=== PATIENT | male | born 1990 | race Two or more races ===

== ENCOUNTER 2020-02-19 10:00 | Emergency (ER) | payer SELFPAY ==
[2020-02-19] MEDS ORDERED: Sodium Chloride 0.9% 1,000 ML IV ONE ×2 (10:21→11:24)
[2020-02-19] MEDS ORDERED: Alum Hydrox/Mag Hydrox/Simeth 15 ML, Metoclopramide 5 MG, Lidocaine 2% 5 ML PO ONE ×3 (10:21)
[2020-02-19] MEDS ORDERED: Ondansetron 4 MG/2 ML SDV IVPUSH ONE (10:29)
[2020-02-19] MEDS ORDERED: Famotidine 20 MG/2 ML SDV IVPUSH ONE (10:29)
--- NOTE | 2020-02-19 10:38 | EDM.PDOC ---
ED HPI GENERAL MEDICAL PROBLEM - General Chief Complaint: Abdominal Pain Stated Complaint: STOMACH ISSUES Time Seen by Provider: 02/19/20 10:11 Source of Information: Reports: Patient History Limitations: Reports: No Limitations - History of Present Illness INITIAL COMMENTS - FREE TEXT/NARRATIVE: HISTORY AND PHYSICAL: History of present illness: Patient is a 29-year-old male who presents to the emergency room with complaints of epigastric abdominal pain that started around 3 AM this morning. States he did have an episode of vomiting, none within the last several hours although still has some nausea. Patient denies any fever, chills, headache, change in vision, syncope or near syncope. Denies any chest pain, back pain, shortness of breath or cough. Denies any diarrhea, constipation or dysuria. Has not noted any blood in urine or stool. Patient has been eating and drinking appropriately. No recent travel. No exposure or family members who are sick. Patient has no significant health problems and no surgeries. Does not take any medications. Denies any drug or alcohol abuse. Review of systems: As per history of present illness and below otherwise all systems reviewed and negative. Past medical history: As per history of present illness and as reviewed below otherwise noncontributory. Surgical history: As per history of present illness and as reviewed below otherwise noncontributory. Social history: See social history for further information Family history: As per history of present illness and as reviewed below otherwise noncontributory. Physical exam: General: Well developed and well nourished. Alert and orientated x 3. Nontoxic in appearance and in no acute distress. Vital signs are stable and have been reviewed by me. Nursing notes were reviewed. Translation services was used, Sammarinese-speaking. HEENT: Atraumatic, normocephalic, pupils equal and reactive bilaterally, negative for conjunctival pallor or scleral icterus, mucous membranes moist, TMs normal bilaterally, throat clear, neck supple, nontender, trachea midline. No drooling or trismus noted. No meningeal signs. No hot potato voice noted. Lungs: Clear to auscultation, breath sounds equal bilaterally, chest nontender. Normal work of breathing, no accessory muscles used. Heart: S1S2, regular rate and rhythm without overt murmur Abdomen: Soft, nondistended, epigastric tenderness without rebound tenderness. Negative for masses or hepatosplenomegaly. Negative for costovertebral tenderness. Skin: Intact, warm, dry. No lesions or rashes noted. Hematologic: No petechiae or purpra. Mucosa appropriate color and normal nail bed color and refill. Extremities: Atraumatic, moves all extremities per self without difficulty or deficits, negative for cords or calf pain. Neurovascular unremarkable. Neuro: Awake, alert, oriented. Cranial nerves II through XII unremarkable. Cerebellum unremarkable. Motor and sensory unremarkable throughout. Exam nonfocal. Notes: Patient's white count is 20.68, lactate of 2.8. Patient's lab work is otherwise unremarkable. His CT of the abdomen and pelvis shows no acute findings. As his white count and lactate are elevated I would like to keep him for observation for the leukocytosis so he can receive fluids and monitor patient status. I did con Dr. Mina, hospitalist on-call, who is agreeable to keeping this patient for further care. Patient's vital signs remained stable. Patient decided to leave AGAINST MEDICAL ADVICE. He is aware of the risks of leaving without further observation and management. We discussed signs and symptoms that would prompt him to return to the emergency room. All signs remained stable. He states he feels much improved after the fluids and medications. He denies any further questions or concerns at this time. This was done with witness. Diagnostics: CBC, CMP, UA, Lipase Therapeutics: Normal Saline, Pepcid, Zofran, Morphine Impression: Leukocytosis Abdominal Pain AMA Plan: Observation admission to Med/Surg -[facility] decided to leave AGAINST MEDICAL ADVICE. Definitive disposition and diagnosis as appropriate pending reevaluation and review of above. abd Pain Score (Numeric/FACES): 7 - Related Data Allergies Allergy/AdvReac Type Severity Reaction Status Date / Time No Known Allergies Allergy Verified 02/19/20 10:25 Home Meds: Home Meds Ondansetron [Zofran ODT] 4 mg PO Q6H PRN #8 tab.dis 02/19/20 [Rx] ED ROS GENERAL - Review of Systems Review Of Systems: Comprehensive ROS is negative, except as noted in HPI. ED EXAM, GI/ABD - Physical Exam Exam: See Below (See dictation) Course - Vital Signs Last Recorded V/S: Last Vital Signs Temp 95.2 F L 02/19/20 10:22 Pulse 96 02/19/20 12:09 Resp 18 02/19/20 12:09 BP 145/77 H 02/19/20 12:09 Pulse Ox 98 02/19/20 12:09 - Orders/Labs/Meds Orders: Active Orders 24 hr Category Date Time Status Admission Status [Patient Status] [ADT] Stat ADT 02/19/20 13:13 Ordered CULTURE BLOOD [BC] Stat Lab 02/19/20 10:54 Received CULTURE BLOOD [BC] Stat Lab 02/19/20 10:58 Received Blood Culture x2 Reflex Set [OM.PC] Stat Oth 02/19/20 10:45 Ordered Labs: Laboratory Tests 02/19/20 02/19/20 02/19/20 Range/Units 10:25 10:25 10:50 WBC 20.63 H (4.0-11.0) K/uL RBC 5.57 (4.50-5.90) M/uL Hgb 18.0 H (13.0-17.0) g/dL Hct 51.2 H (38.0-50.0) % MCV 91.9 (80.0-98.0) fL MCH 32.3 H (27.0-32.0) pg MCHC 35.2 (31.0-37.0) g/dL RDW Std Deviation 45.2 (28.0-62.0) fl RDW Coeff of Ayaka 13 (11.0-15.0) % Plt Count 245 (150-400) K/uL MPV 11.70 (7.40-12.00) fL Neut % (Auto) 81.3 H (48.0-80.0) % Lymph % (Auto) 11.6 L (16.0-40.0) % [place] % (Auto) 6.9 (0.0-15.0) % Eos % (Auto) 0.0 (0.0-7.0) % Baso % (Auto) 0.2 (0.0-1.5) % Neut # (Auto) 16.8 H (1.4-5.7) K/uL Lymph # (Auto) 2.4 (0.6-2.4) K/uL Titus # (Auto) 1.4 H (0.0-0.8) K/uL Eos # (Auto) 0.0 (0.0-0.7) K/uL Baso # (Auto) 0.0 (0.0-0.1) K/uL Nucleated RBC % 0.0 /100WBC Nucleated RBCs # 0 K/uL Lactate (0.20-2.00) mmol/L Sodium 138 (136-148) mmol/L Potassium 4.0 (3.5-5.1) mmol/L Chloride 99 (98-107) mmol/L Carbon Dioxide 27.9 (21.0-32.0) mmol/L BUN 19 H (7.0-18.0) mg/dL Creatinine 1.3 (0.8-1.3) mg/dL Est Cr Clr Drug Dosing 85.79 mL/min Estimated GFR (MDRD) > 60.0 ml/min Glucose 141 H (74-106) mg/dL Calcium 10.1 (8.5-10.1) mg/dL Total Bilirubin 1.1 H (0.2-1.0) mg/dL AST 30 (15-37) IU/L ALT 62 (14-63) IU/L Alkaline Phosphatase 79 (46-116) U/L Total Protein 8.6 H (6.4-8.2) g/dL Albumin 4.8 (3.4-5.0) g/dL Globulin 3.8 (2.6-4.0) g/dL Albumin/Globulin Ratio 1.3 (0.9-1.6) Lipase 178 (73-393) U/L Urine Color YELLOW Urine Appearance CLEAR Urine pH 6.5 (5.0-8.0) Ur Specific [place] 1.010 (1.001-1.035) Urine Protein NEGATIVE (NEGATIVE) mg/dL Urine Glucose (UA) NEGATIVE (NEGATIVE) mg/dL Urine Ketones NEGATIVE (NEGATIVE) mg/dL Urine Occult Blood NEGATIVE (NEGATIVE) Urine Nitrite NEGATIVE (NEGATIVE) Urine Bilirubin NEGATIVE (NEGATIVE) Urine Urobilinogen 0.2 (<2.0) EU/dL Ur Leukocyte Esterase NEGATIVE (NEGATIVE) COVID-19 (FELI) (NEGATIVE) 02/19/20 02/19/20 Range/Units 10:58 12:10 WBC (4.0-11.0) K/uL RBC (4.50-5.90) M/uL Hgb (13.0-17.0) g/dL Hct (38.0-50.0) % MCV (80.0-98.0) fL MCH (27.0-32.0) pg MCHC (31.0-37.0) g/dL RDW Std Deviation (28.0-62.0) fl RDW Coeff of Ayaka (11.0-15.0) % Plt Count (150-400) K/uL MPV (7.40-12.00) fL Neut % (Auto) (48.0-80.0) % Lymph % (Auto) (16.0-40.0) % [place] % (Auto) (0.0-15.0) % Eos % (Auto) (0.0-7.0) % Baso % (Auto) (0.0-1.5) % Neut # (Auto) (1.4-5.7) K/uL Lymph # (Auto) (0.6-2.4) K/uL [place]itus # (Auto) (0.0-0.8) K/uL Eos # (Auto) (0.0-0.7) K/uL Baso # (Auto) (0.0-0.1) K/uL Nucleated RBC % /100WBC Nucleated RBCs # K/uL Lactate 2.8 H* (0.20-2.00) mmol/L Sodium (136-148) mmol/L Potassium (3.5-5.1) mmol/L Chloride (98-107) mmol/L Carbon Dioxide (21.0-32.0) mmol/L BUN (7.0-18.0) mg/dL Creatinine (0.8-1.3) mg/dL Est Cr Clr Drug Dosing mL/min Estimated GFR (MDRD) ml/min Glucose (74-106) mg/dL Calcium (8.5-10.1) mg/dL Total Bilirubin (0.2-1.0) mg/dL AST (15-37) IU/L ALT (14-63) IU/L Alkaline Phosphatase (46-116) U/L Total Protein (6.4-8.2) g/dL Albumin (3.4-5.0) g/dL Globulin (2.6-4.0) g/dL Albumin/Globulin Ratio (0.9-1.6) Lipase (73-393) U/L Urine Color Urine Appearance Urine pH (5.0-8.0) Ur Specific [place] (1.001-1.035) Urine Protein (NEGATIVE) mg/dL Urine Glucose (UA) (NEGATIVE) mg/dL Urine Ketones (NEGATIVE) mg/dL Urine Occult Blood (NEGATIVE) Urine Nitrite (NEGATIVE) Urine Bilirubin (NEGATIVE) Urine Urobilinogen (<2.0) EU/dL Ur Leukocyte Esterase (NEGATIVE) COVID-19 (FELI) NEGATIVE (NEGATIVE) Meds: Medications Discontinued Medications Generic Name Dose Route Start Last Admin Trade Name Freq PRN Reason Stop Dose Admin Al Hydroxide/Mg Hydroxide 15 0 ml 02/19/20 10:21 02/19/20 10:53 ml/ Metoclopramide HCl 5 mg/ PO 02/19/20 10:22 Not Given Lidocaine HCl 5 ml ONETIME ONE Famotidine 20 mg 02/19/20 10:29 02/19/20 10:51 Pepcid IVPUSH 02/19/20 10:30 20 mg ONETIME ONE Administration Sodium Chloride 1,000 mls @ 999 mls/hr 02/19/20 10:21 02/19/20 10:51 Normal Saline IV 02/19/20 11:21 999 mls/hr STAT ONE Administration Sodium Chloride 1,000 mls @ 999 mls/hr 02/19/20 11:24 02/19/20 11:27 Normal Saline IV 02/19/20 12:24 999 mls/hr STAT ONE Administration Iopamidol 100 ml 02/19/20 11:50 02/19/20 11:51 Isovue-370 (76%) IVPUSH 02/19/20 11:51 100 ml ONETIME ONE Administration Morphine Sulfate 4 mg 02/19/20 11:03 02/19/20 11:21 Morphine IVPUSH 02/19/20 11:04 4 mg ONETIME ONE Administration Ondansetron HCl 4 mg 02/19/20 10:29 02/19/20 10:52 Zofran IVPUSH 02/19/20 10:30 4 mg ONETIME ONE Administration Departure - Departure Time of Disposition: 13:45 Disposition: Against Medical Advice 07 Clinical Impression: Left against medical advice Leukocytosis Qualifiers: Leukocytosis type: unspecified Qualified Code(s): D72.829 - Elevated white blood cell count, unspecified Abdominal pain Qualifiers: Abdominal location: epigastric Qualified Code(s): R10.13 - Epigastric pain - Discharge Information Prescriptions: Ondansetron [Zofran ODT] 4 mg PO Q6H PRN #8 tab.dis PRN Reason: Nausea Referrals: PCP,Not In Area [Primary Care Provider] - Forms: ED Department Discharge Sepsis Event Note (ED) - Evaluation Sepsis Screening Result: No Definite Risk - Focused Exam Vital Signs: Vital Signs Temp Pulse Resp BP Pulse Ox 02/19/20 12:09 96 18 145/77 H 98 02/19/20 11:24 99 18 137/79 97 02/19/20 10:22 95.2 F L 104 H 16 167/87 H 97 - My Orders Last 24 Hours: My Active Orders 02/19/20 10:45 Blood Culture x2 Reflex Set [OM.PC] Stat 02/19/20 10:54 CULTURE BLOOD [BC] Stat 02/19/20 10:58 CULTURE BLOOD [BC] Stat 02/19/20 13:13 Admission Status [Patient Status] [ADT] Stat - Assessment/Plan Last 24 Hours: My Active Orders 02/19/20 10:45 Blood Culture x2 Reflex Set [OM.PC] Stat 02/19/20 10:54 CULTURE BLOOD [BC] Stat 02/19/20 10:58 CULTURE BLOOD [BC] Stat 02/19/20 13:13 Admission Status [Patient Status] [ADT] Stat
[2020-02-19 11:00] LABS: BLOOD UREA NITROGEN,BUN 19 mg/dL (7.0-18.0); CARBON DIOXIDE,CO2 27.9 mmol/L (21.0-32.0); CHLORIDE,CL 99 mmol/L (98-107); GLUCOSE RANDOM 141 mg/dL (74-106); LIPASE 178 U/L (73-393); SODIUM,NA 138 mmol/L (136-148)
[2020-02-19] MEDS ORDERED: Morphine 4 MG/ML Syringe IVPUSH ONE (11:03)
[2020-02-19] MEDS ORDERED: Iopamidol 755 Mg/ML 100 ML Bottle IVPUSH ONE (11:50)
--- NOTE | 2020-02-19 13:00 | CT ---
Abdominal pain. Noncontrast CT abdomen pelvis no comparison studies are available. FINDINGS: Motion degrades the quality of the study. The heart size is normal. There is no pericardial effusion. Lung bases are clear. Fatty liver. Spleen pancreas gallbladder adrenal glands are unremarkable. Normal caliber abdominal aorta. Symmetric enhancement both kidneys. No hydronephrosis. Bowel appears unremarkable no obstruction appendix not seen no findings for appendicitis. Urinary bladder is unremarkable prostate gland unremarkable. No suspicious bony lesions. Impression: 1.No acute findings in the abdomen or pelvis. 2. Fatty liver. Please note that all CT scans at this facility use dose modulation, iterative reconstruction, and/or weight-based dosing when appropriate to reduce radiation dose to as low as reasonably achievable. Dictated by May Rios MD @ Feb 19 2020 12:53PM Signed by Dr. May Rios @ Feb 19 2020 12:58PM
--- NOTE | 2020-02-19 13:23 | CR ---
INDICATION: Dyspnea TECHNIQUE: Chest radiograph 1 view COMPARISON: None FINDINGS: Mediastinum: The mediastinum is normal in appearance. The heart silhouette is normal in size and morphology. Lung: Mild bibasilar subsegmental atelectasis is noted with small lung volumes. No sign of pleural effusion seen. No pneumothorax is identified. Bone and Soft tissue: Unremarkable for age. IMPRESSION: 1. Mild bibasilar subsegmental atelectasis is noted with small lung volumes. Dictated by: Jeb Landry MD @ 02/19/2020 13:22:22 (Electronically Signed)
== END 2020-02-19 14:03 | disposition left against medical advice (07) ==
LOC: MW.ED 10:00
DX: R10.13 Epigastric pain (principal); D72.829 Elevated white blood cell count, unspecified; Z53.20 Procedure and treatment not carried out because of patient's decision for unspecified reasons; Z20.828 Contact with and (suspected) exposure to other viral communicable diseases
CPT/HCPCS: 36415; 71045; 74177; 80053; 81003; 83605; 83690; 85025; 87040; 87635; 96361; 96374; 96375; 99284; J2270; J2405; J3490; J7030; Q9967; U0002